=== PATIENT | female | born 1995 | race Caucasian/White ===

== ENCOUNTER 2023-04-23 04:13 | Outpatient (CLI) | payer BC ==
[~2023-04-23] VITALS: Ht 170.2 cm; Wt 97.3 kg
--- NOTE | 2023-04-23 04:25 | NUR ---
Ambulatory to unit for assessment, accompanied by spouse. Pt reports "backache since last night. I don't think I'm having real contractions" Oriented to room, monitor, plan of care. SVE as noted. No bloody show or LOF.
[2023-04-23 04:35] VITALS: BP 138/84; PULSE 75; TEMP 98.3
[2023-04-23 05:08] VITALS: BP 119/67; PULSE 90
[2023-04-23 05:40] VITALS: BP 129/81; PULSE 69
[2023-04-25] MEDS ORDERED: PRENATAL TABLET PO (02:08)
[2023-04-25] MEDS ORDERED: COLACE 100100 MG/CAP PO (02:09)
[2023-04-26] MEDS ORDERED: MOTRIN 800800 MG/TAB PO (08:46)
== END 2023-04-23 06:00 | disposition home or self-care (01) ==
LOC: LDRO 04:13 → LDR 04:20 → LDRO 06:00
DX: O99.891 Other specified diseases and conditions complicating pregnancy (principal); M54.9 Dorsalgia, unspecified; Z3A.39 39 weeks gestation of pregnancy
CPT/HCPCS: OP